=== PATIENT | male | born 1975 | race Hispanic/Latino ===

== ENCOUNTER 2018-07-24 12:21 | Emergency (ER) | payer OTHER ==
[2018-07-24 14:26] LABS: Absolute Lymphocytes (CBC) 1.6 K/uL (0.7-4.9); Absolute Monocytes 0.4 K/uL (0.1-1.3); Absolute Neutrophil 3.8 K/uL (1.8-8.0); Basophils % 0.4 % (0-1.3); Hematocrit 42.8 % (39.6-49.0); Lymphocytes % 27.5 % (15.3-44.8); MPV 7.8 fL (7.6-11.3); Monocytes % 6.3 % (3.3-12.3); RBC Red Blood Cell Count 4.84 M/uL (4.33-5.43)
[2018-07-24 14:43] LABS: ALT/SGPT 25 U/L (12-78); AST/SGOT 16 U/L (15-37); Albumin 4.2 g/dL (3.4-5.0); Alkaline Phosphatase 47 U/L (45-117); BUN Blood Urea Nitrogen 11 mg/dL (7-18); Bicarbonate 31 mmol/L (21-32); Bilirubin Direct < 0.1 mg/dL (0-0.2); Bilirubin Total 0.5 mg/dL (0.2-1.0); Glucose Level 88 mg/dL (74-106); Lipase 125 U/L (73-393); Potassium 4.2 mmol/L (3.5-5.1); Protein, Total 7.5 g/dL (6.4-8.2); Sodium Level 142 mmol/L (136-145)
[2018-07-24 14:59] LABS: Urine Bacteria <20 /HPF (NONE SEEN); Urine Culture Reflex Order NOT NEEDED; Urine RBC <5 /HPF (NONE SEEN)
[2018-07-24 15:00] LABS: Urine Blood NEGATIVE (NEG); Urine Glucose NEGATIVE (NEG); Urine Protein NEGATIVE (NEG); Urine pH 5.5 (5.0-7.0)
--- NOTE | 2018-07-24 15:43 | RAD REPORT ---
EXAM DESCRIPTION: US - Renal Ultrasound-Complete - 07/24/2018 3:04 pm CLINICAL HISTORY: Pain;Lower back pain COMPARISON: Lumbar Spine 3 Views dated 07/24/2018 FINDINGS: Both kidneys are normal in size, shape and echotexture. The right kidney measures 10.1 x 4.7 x 4.6 cm. No hydronephrosis, focal mass or perinephric fluid. The left kidney measures 10.5 x 6.0 x 5 9 cm. No hydronephrosis, focal mass or perinephric fluid. Two cystic lesions are seen along the posterior portion of the urinary bladder. These are suspicious for ureteroceles. IMPRESSION: Unremarkable renal sonogram. Two distinct cystic lesions along the posterior wall of the urinary bladder noted. These are suspicio us for ureteroceles. Direct visualization with cystoscopy may be considered for followup.
--- NOTE | 2018-07-24 15:48 | RAD REPORT ---
EXAM DESCRIPTION: RAD - Lumbar Spine 3 Views - 07/24/2018 3:26 pm CLINICAL HISTORY: PAIN Radiculopathy COMPARISON: No comparisons FINDINGS: Vertebral body heights appear maintained. No compression fracture noted. Disc thinning is present at L5-S1 with small endplate osteophytes. Mild facet hypertrophy is present as well. IMPRESSION: Mild L5-S1 spondylosis.
--- NOTE | 2018-07-24 16:21 | ER ---
Nurse's Notes [facility] Name: Xavier Oakley Age: 43 yrs Sex: Male : 1975 Arrival Date: 07/24/2018 Time: 12:22 Bed 17 Private MD: Diagnosis: Sciatica, unspecified side Presentation: 07/24 12:40 Presenting complaint: Patient states: Liu low back pain that radiates down legs, began ph approx 4 days ago, pt also reports blood in urine, pain after urination and mild lower abdominal pain x 2 days, denies N/V/D or fever. Transition of care: patient was not received from another setting of care. Onset of symptoms was July 24, 2018. Risk Assessment: Do you want to hurt yourself or someone else? Patient reports no desire to harm self or others. Initial Sepsis Screen: Does the patient meet any 2 criteria? No. Patient's initial sepsis screen is negative. Does the patient have a suspected source of infection? No. Patient's initial sepsis screen is negative. Care prior to arrival: None. 12:40 Method Of Arrival: Ambulatory ph 12:40 Acuity: DANG 3 ph Historical: - Allergies: 12:42 No Known Allergies; ph - Home Meds: 12:42 None [Active]; ph - PMHx: 12:42 None; ph - PSHx: 12:42 None; ph - Immunization history:: Adult Immunizations unknown. - Social history:: Smoking status: Patient/guardian denies using tobacco. - Ebola Screening: : No symptoms or risks identified at this time. Screenin:30 Abuse screen: Denies threats or abuse. Nutritional screening: No deficits noted. em Tuberculosis screening: No symptoms or risk factors identified. Fall Risk None identified. Assessment: 13:30 General: Appears in no apparent distress. comfortable, Behavior is calm, cooperative, em Denies fever. Pain: Complains of pain in left low back and right low back Pain radiates to pelvis Pain currently is 5 out of 10 on a pain scale. Neuro: Level of Consciousness is awake, alert, obeys commands, Oriented to person, place, time, situation. Cardiovascular: Patient's skin is warm and dry. Respiratory: Airway is patent Respiratory effort is even, unlabored, Respiratory pattern is regular, symmetrical. GI: Abdomen is flat, Abd is soft and non tender X 4 quads. Patient currently denies nausea, vomiting. : Urine is clear, Reports pain with urination, reports blood in urine. Derm: Skin is intact, is healthy with good turgor, Skin is pink, warm \T\ dry. Musculoskeletal: Range of motion: intact in all extremities. 13:50 Reassessment: Patient appears in no apparent distress at this time. Patient and/or iw family updated on plan of care and expected duration. Pain level reassessed. I agree with above assessment by Seven Rivera LVN. 14:50 Reassessment: Patient appears in no apparent distress at this time. Patient and/or em family updated on plan of care and expected duration. Pain level reassessed. Patient is alert, oriented x 3, equal unlabored respirations, skin warm/dry/pink. rates pain 4/10, currently does not want pain medication Patient states feeling better. 15:30 Reassessment: Patient appears in no apparent distress at this time. Patient and/or em family updated on plan of care and expected duration. Pain level reassessed. Patient is alert, oriented x 3, equal unlabored respirations, skin warm/dry/pink. 16:30 Reassessment: Patient appears in no apparent distress at this time. Patient and/or em family updated on plan of care and expected duration. Pain level reassessed. Patient is alert, oriented x 3, equal unlabored respirations, skin warm/dry/pink. request pain medication, medication administered. Vital Signs: 12:43 BP 140 / 80; Pulse 67; Resp 18; Temp 98.2; Pulse Ox 99% on R/A; Weight 78.93 kg; ph 14:00 BP 132 / 76; Pulse 61; Resp 18; Pulse Ox 99% on R/A; Pain 4/10; em 15:00 BP 126 / 84; Pulse 71; Resp 18; Pulse Ox 99% on R/A; em 16:26 BP 138 / 90; Pulse 57; Resp 16; Pulse Ox 99% on R/A; em ED Course: 12:22 Patient arrived in ED. as 12:42 Triage completed. ph 12:43 Arm band placed on Patient placed in waiting room, Patient notified of wait time. ph 13:04 Rigoberto Dueñas PA is PHCP. cp 13:04 Timothy Simons MD is Attending Physician. cp 13:09 Seven Rivera LVN is Primary Nurse. em 13:30 Placed in gown. Bed in low position. Call light in reach. Side rails up X2. Adult w/ em patient. Pulse ox on. NIBP on. 14:20 Initial lab(s) drawn, by me, sent to lab. Urine collected: clean catch specimen, clear. em Inserted saline lock: 20 gauge in right antecubital area, using aseptic technique. Blood collected. 14:48 Patient taken to ultrasound. via wheelchair. aa4 15:04 US Rp Exam Complete In Process Unspecified. EDMS 15:18 Patient moved to radiology via wheelchair. az 15:21 X-ray completed. Patient tolerated procedure well. az 15:22 XRAY Lumbar Spine (3 Views) In Process Unspecified. EDMS 16:47 No provider procedures requiring assistance completed. IV discontinued, intact, em bleeding controlled, No redness/swelling at site. Pressure dressing applied. Administered Medications: 16:30 Drug: TORadol 30 mg Route: IVP; Site: right antecubital; tw2 16:45 Follow up: Response: No adverse reaction; Pain is decreased em Outcome: 16:20 Discharge ordered by MD. cp 16:47 Discharged to home ambulatory, with family. em 16:47 Condition: good 16:47 Discharge instructions given to patient, Instructed on discharge instructions, follow up and referral plans. medication usage, Demonstrated understanding of instructions, follow-up care, medications, Prescriptions given X 3. 16:47 Patient left the ED. em Signatures: Dispatcher [employer] EDME Seven Rivera LVN LVN em Claire Morrell Irene, RN Sarah Viveros aa4 Neelima Tovar RN RN Rigoberto Sheriff, PAUL PA Eleni Brooks RN RN tw2 Vianca Figueroa wi
--- NOTE | 2018-07-24 16:21 | EDPHYS ---
Physician Documentation [facility] Name: Xavier Oakley Age: 43 yrs Sex: Male : 1975 Arrival Date: 07/24/2018 Time: 12:22 Bed 17 Private MD: ED Physician Timothy Simons HPI: 07/24 13:37 This 43 yrs old Male presents to ER via Ambulatory with complaints of Back cp Pain, Foot Pain. 13:37 The patient presents with pain that is acute, with no known mechanism of injury. cp 13:37 The symptoms are located in the low back. Onset: The symptoms/episode began/occurred 4 cp day(s) ago. The pain radiates to the posterior aspect bilateral leg. Associated signs and symptoms: Pertinent positives: hematuria, Pertinent negatives: abdominal pain, constipation, incontinence, numbness, tingling, urinary retention. Severity of symptoms: in the emergency department the symptoms are unchanged, despite home interventions. Historical: - Allergies: 12:42 No Known Allergies; ph - Home Meds: 12:42 None [Active]; ph - PMHx: 12:42 None; ph - PSHx: 12:42 None; ph - Immunization history:: Adult Immunizations unknown. - Social history:: Smoking status: Patient/guardian denies using tobacco. - Ebola Screening: : No symptoms or risks identified at this time. ROS: 13:45 Constitutional: Negative for body aches, chills, fever, poor PO intake. cp 13:45 Eyes: Negative for injury, pain, redness, and discharge. cp 13:45 ENT: Negative for drainage from ear(s), ear pain, sore throat, difficulty swallowing, difficulty handling secretions. 13:45 Cardiovascular: Negative for chest pain, edema, palpitations. 13:45 Respiratory: Negative for cough, shortness of breath, wheezing. 13:45 Abdomen/GI: Negative for nausea, vomiting, and diarrhea, constipation, anorexia, black/tarry stool, rectal bleeding, bowel incontinence. 13:45 Back: Positive for pain at rest, pain with movement, of the low back area. 13:45 : Positive for hematuria, Negative for urinary symptoms, flank pain, difficulty urinating, bladder incontinence, penile pain, testicular pain 13:45 MS/extremity: Negative for injury or acute deformity, decreased range of motion, paresthesias. 13:45 Skin: Negative for cellulitis, rash. 13:45 Neuro: Negative for altered mental status, dizziness, headache, numbness, weakness. 13:45 All other systems are negative. Exam: 13:55 Constitutional: The patient appears in no acute distress, alert, awake, cp non-diaphoretic, non-toxic, well developed, well nourished. 13:55 Head/Face: Normocephalic, atraumatic. cp 13:55 Eyes: Periorbital structures: appear normal, Conjunctiva: normal, no exudate, no injection, Sclera: no appreciated abnormality, Lids and lashes: appear normal, bilaterally. 13:55 ENT: External ear(s): are unremarkable, Nose: is normal, Mouth: is normal, Posterior pharynx: is normal, airway is patent. 13:55 Neck: ROM/movement: is normal, is supple, without pain, no range of motions limitations, no meningismus, no nuchal rigidity. 13:55 Chest/axilla: Inspection: normal, Palpation: is normal, no crepitus, no tenderness. 13:55 Cardiovascular: Rate: normal, Rhythm: regular, Edema: is not appreciated, JVD: is not appreciated. 13:55 Respiratory: the patient does not display signs of respiratory distress, Respirations: normal, no use of accessory muscles, no retractions, no splinting, no tachypnea, labored breathing, is not present, Breath sounds: are clear throughout, no decreased breath sounds, no stridor, no wheezing. 13:55 Abdomen/GI: Inspection: abdomen appears normal, Bowel sounds: active, all quadrants, Palpation: abdomen is soft and non-tender, in all quadrants, rebound tenderness, is not appreciated, voluntary guarding, is not appreciated, involuntary guarding, is not appreciated. 13:55 Back: pain, that is mild, of the low back area, ROM is normal, vertebral tenderness, is not appreciated, Straight leg raises: of both lower extremities does not illicit pain. 13:55 Musculoskeletal/extremity: Exam is negative for decreased range of motion, deformity, injury. 13:55 Skin: cellulitis, is not appreciated, no rash present. 13:55 Neuro: Orientation: to person, place \T\ time. Mentation: is normal, Cerebellar function: is grossly normal, Motor: moves all fours, strength is normal, Sensation: is normal, Gait: is steady, at a normal pace, without difficulty, Deep tendon reflexes are 2+ (normal) in the right patellar, right Achilles, left patellar and left Achilles. Vital Signs: 12:43 BP 140 / 80; Pulse 67; Resp 18; Temp 98.2; Pulse Ox 99% on R/A; Weight 78.93 kg; ph 14:00 BP 132 / 76; Pulse 61; Resp 18; Pulse Ox 99% on R/A; Pain 4/10; em 15:00 BP 126 / 84; Pulse 71; Resp 18; Pulse Ox 99% on R/A; em 16:26 BP 138 / 90; Pulse 57; Resp 16; Pulse Ox 99% on R/A; em MDM: 13:04 Patient medically screened. cp 14:00 Differential diagnosis: Cholelithiasis chronic back pain, Fracture Neoplasm cp Pyelonephritis Renal Infarction ruptured disc, Ureterolithiasis UTI, prostatitis. 16:18 Data reviewed: vital signs, nurses notes, lab test result(s), radiologic studies, plain cp films, ultrasound, and as a result, I will discharge patient. 16:18 Counseling: I had a detailed discussion with the patient and/or guardian regarding: the cp historical points, exam findings, and any diagnostic results supporting the discharge/admit diagnosis, lab results, radiology results, the need for outpatient follow up, a family practitioner, to return to the emergency department if symptoms worsen or persist or if there are any questions or concerns that arise at home. Response to treatment: the patient's symptoms have mildly improved after treatment, and as a result, I will discharge patient. 07/24 13:45 Order name: Basic Metabolic Panel; Complete Time: 14:46 07/24 15:52 Interpretation: Reviewed. 07/24 13:45 Order name: CBC with Diff; Complete Time: 14:46 07/24 13:45 Order name: Creatinine for Radiology; Complete Time: 14:46 07/24 13:45 Order name: Hepatic Function; Complete Time: 14:46 cp 07/24 13:45 Order name: Lipase; Complete Time: 14:46 07/24 13:45 Order name: Urine Microscopic Only; Complete Time: 15:15 cp 07/24 15:15 Interpretation: Reviewed. 07/24 13:45 Order name: IV Saline Lock; Complete Time: 14:23 07/24 13:45 Order name: Labs collected and sent; Complete Time: 14:23 07/24 13:45 Order name: Urine Dipstick-Ancillary (obtain specimen); Complete Time: 14:23 cp 07/24 14:32 Order name: Urine Dipstick--Ancillary (enter results); Complete Time: 15:15 bd 07/24 15:15 Interpretation: Reviewed. 07/24 14:46 Order name: US Rp Exam Complete; Complete Time: 15:50 07/24 15:00 Order name: XRAY Lumbar Spine (3 Views); Complete Time: 15:50 Administered Medications: 16:30 Drug: TORadol 30 mg Route: IVP; Site: right antecubital; tw2 16:45 Follow up: Response: No adverse reaction; Pain is decreased em Disposition: 07/25 09:27 Co-signature as Attending Physician, Timothy Simons MD. Disposition: 07/24/18 16:20 Discharged to Home. Impression: Sciatica, unspecified side. - Condition is Stable. - Discharge Instructions: Sciatica, Radicular Pain. - Prescriptions for Cyclobenzaprine 10 mg Oral Tablet - take 1 tablet by ORAL route every 8 hours As needed no driving while taking medication; 20 tablet. Tramadol 50 mg Oral Tablet - take 1 tablet by ORAL route every 8 hours as needed. no driving while taking medication; 20 tablet. Medrol (Saurabh) 4 mg Oral Tablets, Dose Pack - take 1 tablet by ORAL route as directed - follow package instructions; 1 packet. - Medication Reconciliation Form, Thank You Letter, Antibiotic Education, Prescription Opioid Use form. - Follow up: Private Physician; When: 2 - 3 days; Reason: Recheck today's complaints. - Problem is new. - Symptoms are unchanged. Signatures: Dispatcher [employer] EDSeven Chavez, FARM MECHANIC APPRENTICE FARM MECHANIC APPRENTICE Neelima Boss RN RN Rigoberto Sheriff PA PA cp Wise, Tara, RN RN tw2 Timothy Simons MD MD Corrections: (The following items were deleted from the chart) 07/24 16:47 16:20 07/24/2018 16:20 Discharged to Home. Impression: Sciatica, unspecified side. em Condition is Stable. Forms are Medication Reconciliation Form, Thank You Letter, Antibiotic Education, Prescription Opioid Use. Follow up: Private Physician; When: 2 - 3 days; Reason: Recheck today's complaints. Problem is new. Symptoms are unchanged. cp 07/25 16:25 07/24 14:00 Data reviewed: vital signs, nurses notes, lab test result(s), radiologic cp studies, plain films, ultrasound, cp
[2018-07-24] MEDS ORDERED: KETOROLAC 30 MG/ML INJ ONE (16:33)
== END 2018-07-24 16:47 | disposition home or self-care (01) ==
LOC: ER 12:21
DX: M54.30 Sciatica, unspecified side (principal); M47.817 Spondylosis without myelopathy or radiculopathy, lumbosacral region
CPT/HCPCS: 36415; 72100; 76770; 80048; 80076; 81003; 81015; 83690; 85025; 96374; 99284

== ENCOUNTER 2019-01-19 18:13 | Emergency (ER) | payer OTHER ==
--- OUTSIDE RECORDS SUMMARY | 2019-01-19 18:15 | XMS REPORT ---
:1975 Author Organization [facility] Address [address] Maharaj [address] [place] [id number] Care Team Providers Name Role Phone Unavailable Unavailable Unavailable Problems This patient has no known problems. Allergies, Adverse Reactions, Alerts This patient has no known allergies or adverse reactions. Medications This patient has no known medications.
[2019-01-19] MEDS ORDERED: NA CHLORIDE 0.9% 1,000 ML ONE (19:56)
[2019-01-19] MEDS ORDERED: METOCLOPRAMIDE 10 MG/2mL INJ ONE (19:56)
[2019-01-19] MEDS ORDERED: KETOROLAC 30 MG/ML INJ ONE (19:56)
[2019-01-19] MEDS ORDERED: DIPHENHYDRAMINE 50 MG/ML VIAL ONE (19:56)
--- NOTE | 2019-01-19 20:01 | RAD REPORT ---
EXAM DESCRIPTION: CT - Head Brain Wo Cont - 01/19/2019 7:45 pm CLINICAL HISTORY: Right-sided headache, nausea, dizziness COMPARISON: None. TECHNIQUE: Axial 5 mm thick images of the head were obtained without IV contrast. All CT scans are performed using dose optimization technique as appropriate and may include automated exposure control or mA/KV adjustment according to patient size. FINDINGS: No intracranial hemorrhage, mass, edema or shift of mid-line structures. No acute infarcti on changes seen. No abnormal extra-axial fluid collections. Ventricles are normal. Physiologic calcif ications are present. Mastoid air cells and visualized portions of the paranasal sinuses are clear. No acute bony findings. IMPRESSION: Negative non-contrast CT head examination.
[2019-01-19 20:19] LABS: Hematocrit 45.1 % (39.6-49.0)
[2019-01-19 20:28] LABS: Absolute Lymphocytes (CBC) 1.7 K/uL (0.7-4.9); Basophils % 0.3 % (0-1.3); Eosinophils % 6.1 % (0-4.4); Lymphocytes % 16.5 % (15.3-44.8); MPV 7.8 fL (7.6-11.3); Monocytes % 5.3 % (3.3-12.3); RBC Red Blood Cell Count 5.05 M/uL (4.33-5.43)
[2019-01-19 20:30] LABS: Potassium 4.1 mmol/L (3.5-5.1)
--- NOTE | 2019-01-19 20:35 | ER ---
Nurse's Notes [facility] Name: Xavier Oakley Age: 43 yrs Sex: Male : 1975 Arrival Date: 01/19/2019 Time: 18:15 Bed 26 Private MD: Diagnosis: Headache Presentation: 01/19 18:19 Presenting complaint: Patient states: R PARIETAL CLOUD WITH NAUSEA AND DIZZINESS x 7 DAYS. bp Transition of care: patient was not received from another setting of care. Onset of symptoms is unknown. Risk Assessment: Do you want to hurt yourself or someone else? Patient reports no desire to harm self or others. Initial Sepsis Screen: Does the patient meet any 2 criteria? No. Patient's initial sepsis screen is negative. Does the patient have a suspected source of infection? No. Patient's initial sepsis screen is negative. Care prior to arrival: None. 18:19 Method Of Arrival: Ambulatory bp 18:19 Acuity: DANG 4 bp Triage Assessment: 18:54 Headache History: Denies prior headaches. General: Appears in no apparent distress. bp uncomfortable, Behavior is cooperative, appropriate for age, anxious. Pain: Complains of pain in right frontal area, right side of the back of head and right temporal area Pain currently is 8 out of 10 on a pain scale. Pain began DAYS AGO. Pain: Also complains of nausea. EENT: No deficits noted. Neuro: Level of Consciousness is awake, alert, obeys commands, Oriented to person, place, time, situation, Appropriate for age Reports dizziness, headache in right parietal area. Cardiovascular: No deficits noted. Respiratory: No deficits noted. GI: Reports nausea. : No signs and/or symptoms were reported regarding the genitourinary system. Derm: No deficits noted. Musculoskeletal: No deficits noted. Historical: - Allergies: 18:20 No Known Allergies; bp - Home Meds: 18:20 diclofenac sodium 75 mg oral TbEC 1 tab 2 times per day [Active]; amitriptyline 10 mg bp Oral tab 1 tab 3 times per day [Active]; - PMHx: 18:20 None; bp - Immunization history:: Adult Immunizations up to date. - Social history:: Smoking status: Patient/guardian denies using tobacco. - Ebola Screening: : No symptoms or risks identified at this time. Screenin:14 Abuse screen: Denies threats or abuse. Nutritional screening: No deficits noted. ae4 Tuberculosis screening: No symptoms or risk factors identified. Fall Risk None identified. Assessment: 19:10 General: Appears in no apparent distress. uncomfortable, Behavior is calm, cooperative, ae4 appropriate for age. Pain: Complains of pain in head and back of head Pain currently is 10 out of 10 on a pain scale. Pain began gradually, Patient states this headache is different from previous headaches and he feels like "I can't stand it anymore. ". Neuro: Level of Consciousness is awake, alert, obeys commands, Oriented to person, place, time, situation, Appropriate for age Data Transcriber are equal bilaterally Denies blurred vision dizziness, difficulty swallowing, photophobia. Cardiovascular: Heart tones S1 S2 present Patient's skin is warm and dry. Rhythm is regular. Respiratory: Airway is patent Respiratory effort is even, unlabored, Respiratory pattern is regular, symmetrical, Breath sounds are clear bilaterally. GI: Abdomen is round non-distended, Bowel sounds present X 4 quads. : No signs and/or symptoms were reported regarding the genitourinary system. EENT: No signs and/or symptoms were reported regarding the EENT system. Derm: No signs and/or symptoms reported regarding the dermatologic system. Skin is normal. 20:47 Reassessment: Patient and/or family updated on plan of care and expected duration. Pain ae4 level reassessed. Patient states feeling better. Vital Signs: 18:20 BP 160 / 90; Pulse 57; Resp 20; Temp 98.1; Pulse Ox 100% ; Weight 77.11 kg; bp 20:12 BP 123 / 69; Pulse 71; Resp 16; Pulse Ox 99% on R/A; ae4 20:46 BP 123 / 83; Pulse 80; Resp 18; Pulse Ox 99% on R/A; ae4 ED Course: 18:15 Patient arrived in ED. mr 18:19 Triage completed. bp 18:20 Arm band placed on left wrist. bp 19:09 Timothy Simons MD is Attending Physician. gs 19:20 Matt Powers, EMILI is Primary Nurse. ae4 19:[address] nj 19:45 CT completed. Patient tolerated procedure well. Patient moved back from CT. nj 19:45 CT Head Brain wo Cont In Process Unspecified. EDMS 20:13 Inserted saline lock: 20 gauge in right antecubital area, using aseptic technique. ae4 Blood collected. 20:14 Placed in gown. Bed in low position. Call light in reach. Side rails up X 1. Adult w/ ae4 patient. awake overnight monitor on. Pulse ox on. NIBP on. Warm blanket given. 20:34 Warren Turcios MD is Referral Physician. 20:49 No provider procedures requiring assistance completed. IV discontinued, intact, ae4 bleeding controlled, No redness/swelling at site. Pressure dressing applied. Administered Medications: 19:54 Drug: Reglan 10 mg Route: IVP; Site: right antecubital; ae4 19:54 Drug: NS 0.9% 1000 ml Route: IV; Rate: 1 bolus; Site: right antecubital; ae4 19:56 Drug: Benadryl 25 mg Route: IVP; Site: right antecubital; ae4 19:58 Drug: TORadol - Ketorolac 15 mg Route: IVP; Site: right antecubital; ae4 Outcome: 20:34 Discharge ordered by . gs 20:49 Discharged to home ambulatory, with significant other. ae4 20:49 Condition: stable 20:49 Discharge instructions given to patient, Instructed on discharge instructions, follow up and referral plans. Demonstrated understanding of instructions. 20:49 Patient left the ED. ae4 Signatures: Dispatcher [employer] EDVA Mary Luo, Abhi Timothy Lopez MD MD Enio Phillips RN RN Matt Fuller RN RN ae4
--- NOTE | 2019-01-19 20:35 | EDPHYS ---
Physician Documentation [facility] Name: Xavier Oakley Age: 43 yrs Sex: Male : 1975 Arrival Date: 01/19/2019 Time: 18:15 Bed 26 Private MD: ED Physician Timothy Simons HPI: 01/19 21:24 This 43 yrs old Male presents to ER via Ambulatory with complaints of Headache.gs 21:24 The patient complains of pain to the left latter day. The patient describes the headache as gs throbbing. Onset: The symptoms/episode began/occurred 1 week(s) ago. Associated signs and symptoms: Pertinent negatives: altered mental status, fever, rash, vomiting. Severity of symptoms: At its worst the pain was severe, in the emergency department the pain has improved, moderately. Headache History: Denies prior headaches. The symptoms are alleviated by nothing. the symptoms are aggravated by nothing. The patient has not experienced similar symptoms in the past. The patient has been recently seen by a physician: the patient's primary care provider, with similar presenting complaints, STARTED ON MEDS. Historical: - Allergies: 18:20 No Known Allergies; bp - Home Meds: 18:20 diclofenac sodium 75 mg oral TbEC 1 tab 2 times per day [Active]; amitriptyline 10 mg bp Oral tab 1 tab 3 times per day [Active]; - PMHx: 18:20 None; bp - Immunization history:: Adult Immunizations up to date. - Social history:: Smoking status: Patient/guardian denies using tobacco. - Ebola Screening: : No symptoms or risks identified at this time. ROS: 21:24 All other systems are negative. gs Exam: 21:24 Head/Face: Normocephalic, atraumatic. Eyes: Pupils equal round and reactive to light, gs extra-ocular motions intact. Lids and lashes normal. Conjunctiva and sclera are non-icteric and not injected. Cornea within normal limits. Periorbital areas with no swelling, redness, or edema. ENT: Nares patent. No nasal discharge, no septal abnormalities noted. Tympanic membranes are normal and external auditory canals are clear. Oropharynx with no redness, swelling, or masses, exudates, or evidence of obstruction, uvula midline. Mucous membranes moist. Neck: Trachea midline, no thyromegaly or masses palpated, and no cervical lymphadenopathy. Supple, full range of motion without nuchal rigidity, or vertebral point tenderness. No Meningismus. Chest/axilla: Normal chest wall appearance and motion. Nontender with no deformity. No lesions are appreciated. Cardiovascular: Regular rate and rhythm with a normal S1 and S2. No gallops, murmurs, or rubs. Normal PMI, no JVD. No pulse deficits. Respiratory: Lungs have equal breath sounds bilaterally, clear to auscultation and percussion. No rales, rhonchi or wheezes noted. No increased work of breathing, no retractions or nasal flaring. Abdomen/GI: Soft, non-tender, with normal bowel sounds. No distension or tympany. No guarding or rebound. No evidence of tenderness throughout. Back: No spinal tenderness. No costovertebral tenderness. Full range of motion. Skin: Warm, dry with normal turgor. Normal color with no rashes, no lesions, and no evidence of cellulitis. MS/ Extremity: Pulses equal, no cyanosis. Neurovascular intact. Full, normal range of motion. Neuro: Awake and alert, GCS 15, oriented to person, place, time, and situation. Cranial nerves II-XII grossly intact. Motor strength 5/5 in all extremities. Sensory grossly intact. Cerebellar exam normal. Normal gait. 21:24 Constitutional: The patient appears alert, awake. Vital Signs: 18:20 BP 160 / 90; Pulse 57; Resp 20; Temp 98.1; Pulse Ox 100% ; Weight 77.11 kg; bp 20:12 BP 123 / 69; Pulse 71; Resp 16; Pulse Ox 99% on R/A; ae4 20:46 BP 123 / 83; Pulse 80; Resp 18; Pulse Ox 99% on R/A; ae4 MDM: 19:30 Patient medically screened. gs 21:24 Differential diagnosis: migraine, neoplasm, tension headache, vasomotor headache. Data gs reviewed: vital signs, nurses notes. Counseling: I had a detailed discussion with the patient and/or guardian regarding: the historical points, exam findings, and any diagnostic results supporting the discharge/admit diagnosis, the presence of at least one elevated blood pressure reading (>120/80) during this emergency department visit, lab results, radiology results, the need for outpatient follow up. Response to treatment: the patient's symptoms have resolved after treatment, and as a result, I will discharge patient. Special discussion: I have referred the patient to see his PCP for further evaluation of high blood pressure. 01/19 19:31 Order name: CBC with Diff; Complete Time: 20:33 01/19 19:31 Order name: Basic Metabolic Panel; Complete Time: 20:33 01/19 19:31 Order name: CT Head Brain wo Cont; Complete Time: 20: 01/19 19:31 Order name: CPK; Complete Time: 20:33 Administered Medications: 19:54 Drug: Reglan 10 mg Route: IVP; Site: right antecubital; ae4 19:54 Drug: NS 0.9% 1000 ml Route: IV; Rate: 1 bolus; Site: right antecubital; ae4 19:56 Drug: Benadryl 25 mg Route: IVP; Site: right antecubital; ae4 19:58 Drug: TORadol - Ketorolac 15 mg Route: IVP; Site: right antecubital; ae4 Disposition: 01/19/19 20:34 Discharged to Home. Impression: Headache. - Condition is Stable. - Discharge Instructions: General Headache Without Cause, Migraine Headache. - Prescriptions for Fiorinal 50- 325-40 mg Oral Capsule - take 1 capsule by ORAL route every 4 hours As needed - not to exceed 6 capsules per day; 15 capsule. - Medication Reconciliation Form, Thank You Letter, Antibiotic Education, Prescription Opioid Use form. - Follow up: Warren Turcios MD; When: 2 - 3 days; Reason: Re-evaluation by your physician. Signatures: Dispatcher [employer] [facility] Timothy Simons MD MD Enio Phillips, EMILI RN Matt Fuller RN RN ae4 Corrections: (The following items were deleted from the chart) 20:49 20:34 01/19/2019 20:34 Discharged to Home. Impression: Headache. Condition is Stable. ae4 Forms are Medication Reconciliation Form, Thank You Letter, Antibiotic Education, Prescription Opioid Use. Follow up: Warren Turcios; When: 2 - 3 days; Reason: Re-evaluation by your physician.
== END 2019-01-19 20:49 | disposition home or self-care (01) ==
LOC: ER 18:13
DX: R51 Headache (principal)
CPT/HCPCS: 36415; 70450; 80048; 82550; 85025; 96374; 96375; 99285; J2765; J7030